=== PATIENT | female | born 1980 | race Caucasian/White ===

== ENCOUNTER → 2018-06-28 | Outpatient (REF) | payer OTHER | LOC: M SFHCLERA 11:02 | PROVIDERS: ATTEND Physician Assistant | DX: J02.9 Acute pharyngitis, unspecified (principal) ==

== ENCOUNTER 2022-02-19 16:41 | Outpatient (CLI) | payer OTHER ==
[~2022-02-19] VITALS: Ht 167.6 cm; Wt 113.7 kg
[2022-02-19] MEDS ORDERED: PRENTAB9 PO (17:14)
[2022-02-19] MEDS ORDERED: HOME MED LIST COMPLETE! XX SCH (17:15)
[2022-02-19 17:16] VITALS: BP 133/76
== END 2022-02-19 18:18 | disposition home or self-care (01) ==
LOC: M LDO 16:41
PROVIDERS: ATTEND Obstetrics & Gynecology
DX: O36.8230 Fetal anemia and thrombocytopenia, third trimester, not applicable or unspecified (principal); O99.283 Endocrine, nutritional and metabolic diseases complicating pregnancy, third trimester; E03.9 Hypothyroidism, unspecified; O09.513 Supervision of elderly primigravida, third trimester; Z3A.38 38 weeks gestation of pregnancy

== ENCOUNTER → 2022-02-23 | Outpatient (CLI) | payer OTHER ==
[~2022-02-23] MED LIST: PRENTAB9 PO
== END ==
LOC: M WHC 10:55
PROVIDERS: ATTEND Obstetrics & Gynecology
DX: O28.8 Other abnormal findings on antenatal screening of mother (principal); Z3A.38 38 weeks gestation of pregnancy

== ENCOUNTER 2022-03-08 20:08 | Inpatient (IN) | payer OTHER ==
[~2022-03-08] VITALS: Ht 167.6 cm; Wt 111.9 kg
[2022-03-08 20:35] VITALS: BP 139/96
[2022-03-08] MEDS ORDERED: OXYTOCIN INJ 10UNITS/ML 1ML VIAL IM PRN (20:35)
[2022-03-08] MEDS ORDERED: OXYTOCIN DRIP 30 UNITS in IV 1 EA IV PRN ×4 (20:35)
[2022-03-08] MEDS ORDERED: LIDOCAINE 1% MDV 20ML VIAL INFIL PRN (20:35)
[2022-03-08] MEDS ORDERED: TRANEXAMIC ACID INJection 1,000 MG in NS 100 ML IV PRN (20:35)
[2022-03-08] MEDS ORDERED: CARBOPROST TROMETHAMINE 250 MCG/ML AMP IM PRN (20:35)
[2022-03-08 21:09] VITALS: BP 137/85
[2022-03-08] MEDS: miSOPROStol 50MCG 1/2 TABLET PO SCH (21:10)
[2022-03-08 21:20] LABS: HEMATOCRIT 31.7 % (36.0-47.0); MEAN CORPUSCULAR HEMOGLOBIN 25.8 pg (27.0-33.0); MEAN CORPUSCULAR HGB CONC 31.5 g/dl (32.0-36.5); MEAN CORPUSCULAR VOLUME 81.7 fl (80.0-96.0); PLATELET COUNT, AUTOMATED 250 10^3/uL (150-450); RED BLOOD COUNT 3.88 10^6/uL (4.00-5.40)
[2022-03-08 21:40] VITALS: BP 141/89
[2022-03-08 22:10] VITALS: BP 134/86
[2022-03-08 22:54] LABS: TOTAL PROTEIN,RANDOM URINE 9.4 MG/DL (0.0-14.0)
[2022-03-08 22:59] LABS: CREATININE,RANDOM URINE 52.2 MG/DL
[2022-03-08 23:15] VITALS: BP 136/88
[2022-03-09] VITALS (25 sets, daily range): BP systolic 123–170; BP diastolic 60–96
[2022-03-09] MEDS: miSOPROStol 50MCG 1/2 TABLET PO SCH ×2 (01:53→07:25)
[2022-03-09] MEDS ORDERED: ACETAMINOPHEN 500 MG TAB PO ONE (05:55)
[2022-03-09] MEDS ORDERED: OXYTOCIN DRIP 30 UNITS in IV 1 EA IV SCH (17:25)
[2022-03-09] MEDS ORDERED: ONDANSETRON 4MG 2ML VIAL IV PRN ×2 (18:40→18:45)
[2022-03-10 00:29] VITALS: BP 165/82
[2022-03-10] MEDS ORDERED: BUTORPHANOL 2 MG/ML 1ML VIAL IV ONE (00:45)
[2022-03-10] MEDS ORDERED: PROMETHAZINE 25MG/ML 1ML VIAL IV ONE (00:45)
[2022-03-10] MEDS ORDERED: METHYLERGONOVINE MALEATE 0.2 MG TAB PO PRN (02:00)
[2022-03-10] MEDS ORDERED: ACETAMINOPHEN TAB 650MG DOSE (2X325MG) PO PRN (02:00)
[2022-03-10] MEDS ORDERED: DOCUSATE SODIUM 100MG CAPSULE PO PRN (02:00)
[2022-03-10] MEDS ORDERED: ACETAMINOPHEN 500 MG TAB PO PRN (02:00)
[2022-03-10] MEDS ORDERED: IBUPROFEN 600MG TAB PO PRN (02:00)
[2022-03-10] MEDS ORDERED: RHOGAM 300MCG (1500IU) INJ IM SCH (02:00)
[2022-03-10] MEDS ORDERED: DIBUCAINE 1% OINTMENT 30GM TOP PRN (02:00)
[2022-03-10 02:31] VITALS: BP 132/77
[2022-03-10] MEDS ORDERED: LR 1,000 ML IV SCH (02:45)
[2022-03-10] MEDS ORDERED: OXYTOCIN DRIP 30 UNITS in IV 1 EA IV SCH (02:45)
[2022-03-10 02:52] VITALS: BP 124/76
[2022-03-10 04:10] VITALS: BP 119/73
[2022-03-10] MEDS ORDERED: CALCIUM CARBONATE 500 MG CHEW U/D PO PRN (05:45)
[2022-03-10 06:00] VITALS: BP 117/72
[2022-03-10] MEDS: PRENATAL VITAMINS CHEWABLE TABLET PO SCH (07:59)
[2022-03-10] MEDS: IBUPROFEN 800 MG TAB PO PRN (12:56)
[2022-03-10 17:42] VITALS: BP 120/74
[2022-03-11 06:00] VITALS: BP 123/73
[2022-03-11] MEDS: PRENATAL VITAMINS CHEWABLE TABLET PO SCH (07:36)
[2022-03-11] MEDS ORDERED: HOME MED LIST COMPLETE! XX SCH (09:05)
[2022-03-11] MEDS: IBUPROFEN 800 MG TAB PO PRN (10:19)
[2022-03-11] MEDS ORDERED: LEVO137T2 PO (11:45)
[2022-03-12] MEDS ORDERED: MEASLES,MUMPS,RUBELLA VACCINE INJ (MMR-II) SC.IMMUN ONE (09:00)
== END 2022-03-11 14:33 | disposition home or self-care (01) | DRG 560 ==
LOC: M LDI 20:08 → M OBS 03-10 04:00
PROVIDERS: ADMIT Advanced Practice Midwife; ATTEND Obstetrics & Gynecology
PROC: 3E0P7GC Introduction of Other Therapeutic Substance into Female Reproductive, Via Natural or Artificial Opening (ICD-10-PCS; 2022-03-08)
PROC: 10E0XZZ Delivery of Products of Conception, External Approach (ICD-10-PCS; principal; 2022-03-10)
PROC: 0HQ9XZZ Repair Perineum Skin, External Approach (ICD-10-PCS; 2022-03-10)
DX: O48.0 Post-term pregnancy (principal); E03.9 Hypothyroidism, unspecified; O09.523 Supervision of elderly multigravida, third trimester; O99.284 Endocrine, nutritional and metabolic diseases complicating childbirth; O69.81X0 Labor and delivery complicated by cord around neck, without compression, not applicable or unspecified; O70.0 First degree perineal laceration during delivery; Z37.0 Single live birth